=== PATIENT | male | born 1990 | race Two or more races ===

== ENCOUNTER 2016-08-08 22:59 | Emergency (ER) | payer OTHER ==
[2016-08-08 23:13] VITALS: BP 131/86; PULSE 92; BMI 31.3
[2016-08-09] MEDS ORDERED: IBUPROFEN 600 MG TABLET (FP) PO ONE ×2 (00:02→01:00)
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
[2016-08-09] MEDS ORDERED: OXYCODONE/APAP 5/325MG COMBO TABLET PO ONE (00:04)
[2016-08-09] MEDS ORDERED: OXYCODONE/APAP 5/325MG COMBO TABLET ONE (00:59)
== END 2016-08-09 02:29 | disposition home or self-care (01) ==
LOC: JER 22:59
DX: S32.2XXA Fracture of coccyx, initial encounter for closed fracture (principal); V18.0XXA Pedal cycle driver injured in noncollision transport accident in nontraffic accident, initial encounter; Y92.414 Local residential or business street as the place of occurrence of the external cause; Y93.55 Activity, bike riding; Y99.8 Other external cause status
CPT/HCPCS: 72100-TC; 72220-TC; 99281-25; 99282-25

== ENCOUNTER 2017-11-18 10:04 | Emergency (ER) | payer SELFPAY ==
[2017-11-18 10:17] VITALS: BP 139/64; PULSE 85; TEMP 98.5; BMI 25.0
--- NOTE | 2017-11-18 11:29 | PDOC ---
History of Present Illness - General Chief Complaint: Suture/Staple Removal (other) Stated Complaint: SUTURE REMOVAL Time Seen by Provider: 11/18/17 10:49 - History of Present Illness Initial Comments: 27-year-old male presents for evaluation of staple removal from the left scalp matt were placed 11 days ago. Since that time he has no issues. 11/18/17 11:27 Past History - Past Medical History Allergies/Adverse Reactions: Allergies Allergy/AdvReac Type Severity Reaction Status Date / Time No Known Allergies Allergy Verified 11/18/17 10:09 Home Medications: Ambulatory Orders Ibuprofen [Motrin -] 600 mg PO TID PRN #12 tablet 08/09/16 CVA: No COPD: No DVT: No Dementia: No - Immunization History Immunization Up to Date: Yes - Suicide/Smoking/Psychosocial Hx Smoking History: Never smoked Have you smoked in the past 12 months: No Information on smoking cessation initiated: No Hx Alcohol Use: No Drug/Substance Use Hx: Yes (MARIJUANA) Substance Use Type: Marijuana Review of Systems - Review of Systems All Other Systems: Reviewed and Negative *Physical Exam - Vital Signs Last Vital Signs Temp Pulse Resp BP Pulse Ox 98.5 F 85 16 139/64 97 11/18/17 10:09 11/18/17 10:09 11/18/17 10:09 11/18/17 10:09 11/18/17 10:09 - Physical Exam Comments: The wound about the left scalp is healed the surrounding skin is normal color and temperature matt are in place 11/18/17 11:27 Medical Decision Making - Medical Decision Making Using a staple remover 10 matt were removed. This was tolerated well. medications. 11/18/17 11:28 *DC/Admit/Observation/Transfer Diagnosis at time of Disposition: Removal of matt - Referrals - Patient Instructions Printed Discharge Instructions: DI for Suture Removal Additional Instructions: She will if you have any issues with your wound keep clean and dry for the next 3 days a wash after that. - Post Discharge Activity
== END 2017-11-18 11:41 | disposition home or self-care (01) ==
LOC: JERFT 10:04
DX: Z48.02 Encounter for removal of sutures (principal)
CPT/HCPCS: 99281-25